=== PATIENT | male | born 1965 | race African-American/Black ===

== ENCOUNTER 2021-08-18 16:03 | Inpatient (IN) | payer BC, MEDICAID ==
[~2021-08-18] VITALS: Ht 195.6 cm; Wt 0.1 kg
[2021-08-18 22:15] LABS: Basophils # (auto) 0 10 ^3/uL (0-0.2); Basophils % (auto) 0.5 % (0.0-2.0); Eosinophils # (auto) 0.2 10 ^3/uL (0-0.8); Eosinophils % (auto) 2.3 % (0.0-7.0); Hematocrit 41.5 % (41.0-53.0); Hemoglobin 13.5 g/dL (13.5-17.5); Lymphocytes # (auto) 2.4 10 ^3/uL (0.4-5.4); Lymphocytes % (auto) 34.1 % (10.0-50.0); Mean Corpuscular Hemoglobin 29.1 pg (28.0-32.0); Mean Corpuscular Hgb Conc. 32.4 g/dL (32.0-36.0); Mean Corpuscular Volume 89.7 fL (80.0-100.0); Monocytes # (auto) 0.8 10 ^3/uL (0-1.3); Monocytes % (auto) 10.7 % (0.0-12.0); Neutrophils # (auto) 3.7 10 ^3/uL (1.6-8.6); Neutrophils % (auto) 52.4 % (37.0-80.0); Nucleated Red Blood Cells % 0.1 %; Red Blood Cells 4.63 10^6/uL (4.5-5.90); Red Cell Distribution Width 14.9 % (11.8-14.3); White Blood Cell 7.2 10^3/uL (4.4-10.8)
[2021-08-18 22:35] LABS: Albumin 3.5 g/dL (3.4-5.0); Calcium 9.4 mg/dL (8.5-10.1); Potassium 4.1 mmol/L (3.5-5.1)
[2021-08-18 22:38] LABS: BUN/Creatinine Ratio 16.2
[2021-08-18 22:40] LABS: Bilirubin, Total 0.4 mg/dL (0.2-1.0)
[2021-08-19] MEDS ORDERED: DOCUSATE SOD 100 MG CAP PO ONE (05:45)
[2021-08-19 06:20] LABS: Urine Bacteria NONE SEEN /hpf (None Seen); Urine Blood Negative /uL (Negative); Urine Specific Gravity 1.017 (1.001-1.035); Urine WBC <1 /hpf (0 - 3)
[2021-08-19 06:37] LABS: Amphetamine Screen, Urine NEGATIVE (NEGATIVE); Barbiturate Scree,Urine NEGATIVE (NEGATIVE); Benzodiazephine Screen, Urine NEGATIVE (NEGATIVE); Cannabinoid Screen, Urine NEGATIVE (NEGATIVE); Cocaine Screen, Urine NEGATIVE (NEGATIVE); Opiate Scree,Urine NEGATIVE (NEGATIVE); Phencyclidine Screen, Urine NEGATIVE (NEGATIVE)
[2021-08-19 07:10] LABS: BUN/Creatinine Ratio 13.6; Calcium 9.3 mg/dL (8.5-10.1); Potassium 4.2 mmol/L (3.5-5.1)
[2021-08-19 07:12] LABS: Basophils # (auto) 0.1 10 ^3/uL (0-0.2); Basophils % (auto) 0.7 % (0.0-2.0); Eosinophils # (auto) 0.1 10 ^3/uL (0-0.8); Eosinophils % (auto) 1.8 % (0.0-7.0); Hematocrit 39.3 % (41.0-53.0); Lymphocytes # (auto) 2.3 10 ^3/uL (0.4-5.4); Lymphocytes % (auto) 33.1 % (10.0-50.0); Mean Corpuscular Hemoglobin 29.8 pg (28.0-32.0); Mean Corpuscular Volume 90.2 fL (80.0-100.0); Monocytes # (auto) 0.7 10 ^3/uL (0-1.3); Monocytes % (auto) 10.7 % (0.0-12.0); Neutrophils # (auto) 3.7 10 ^3/uL (1.6-8.6); Neutrophils % (auto) 53.7 % (37.0-80.0); Nucleated Red Blood Cells % 0.1 %; Red Blood Cells 4.36 10^6/uL (4.5-5.90); Red Cell Distribution Width 14.8 % (11.8-14.3); White Blood Cell 6.8 10^3/uL (4.4-10.8)
[2021-08-19] MEDS: FOLIC ACID 1 MG, MULTIPLE VITAMIN 10 ML, THIAMINE INJ 100 MG in SODIUM CHLORIDE 0.9% 1,... INJ SCH (12:28)
[2021-08-19] MEDS: MORPHINE SULFATE 4 MG/ML SYR/VIAL IV PRN ×3 (13:48→23:20)
[2021-08-19 17:00] VITALS: BP 130/88
[2021-08-19] MEDS ORDERED: GOLYTELY 4L KIT PO ONE (17:15)
[2021-08-19 20:00] VITALS: BP 117/69
[2021-08-19 20:46] LABS: INR 1.26 (0.9-1.15); Partial Thromboplastin Time 29.3 sec (23.6-33.0)
[2021-08-19 22:00] VITALS: BP 117/69
[2021-08-20] VITALS (7 sets, daily range): BP systolic 116–175; BP diastolic 65–86
[2021-08-20] MEDS ORDERED: GOLYTELY 4L KIT PO ONE (06:00)
[2021-08-20] MEDS ORDERED: MAGNESIUM CITRATE SOLUTION 300 ML BTL PO ONE (06:00)
[2021-08-20 06:02] LABS: Basophils # (auto) 0 10 ^3/uL (0-0.2); Basophils % (auto) 0.6 % (0.0-2.0); Eosinophils # (auto) 0.1 10 ^3/uL (0-0.8); Eosinophils % (auto) 1.4 % (0.0-7.0); Hematocrit 40.9 % (41.0-53.0); Hemoglobin 13.7 g/dL (13.5-17.5); Lymphocytes # (auto) 1.9 10 ^3/uL (0.4-5.4); Lymphocytes % (auto) 27.8 % (10.0-50.0); Mean Corpuscular Hemoglobin 30.8 pg (28.0-32.0); Mean Corpuscular Hgb Conc. 33.5 g/dL (32.0-36.0); Mean Corpuscular Volume 91.9 fL (80.0-100.0); Monocytes # (auto) 0.7 10 ^3/uL (0-1.3); Monocytes % (auto) 10.7 % (0.0-12.0); Neutrophils % (auto) 59.5 % (37.0-80.0); Nucleated Red Blood Cells % 0.2 %; Red Blood Cells 4.45 10^6/uL (4.5-5.90); Red Cell Distribution Width 14.9 % (11.8-14.3); White Blood Cell 6.7 10^3/uL (4.4-10.8)
[2021-08-20 06:10] LABS: Magnesium 1.7 mg/dL (1.6-2.6); Potassium 4.1 mmol/L (3.5-5.1)
[2021-08-20 06:17] LABS: Albumin 3.2 g/dL (3.4-5.0); BUN/Creatinine Ratio 10.3; Bilirubin, Total 0.6 mg/dL (0.2-1.0); Calcium 9.2 mg/dL (8.5-10.1); Phosphorus 3.1 mg/dL (2.5-4.90)
[2021-08-20 08:37] LABS: Hepatitis B Surface Antibody Negative (Negative)
[2021-08-20 09:10] LABS: Hepatitis A Total Antibody Negative (Negative)
[2021-08-20] MEDS: PANTOPRAZOLE 40 MG TAB PO SCH (09:23)
[2021-08-20] MEDS: MORPHINE SULFATE 4 MG/ML SYR/VIAL IV PRN ×3 (10:39→21:22)
[2021-08-20 11:02] LABS: Hepatitis C Antibody Negative (Negative)
[2021-08-20] MEDS: FOLIC ACID 1 MG, MULTIPLE VITAMIN 10 ML, THIAMINE INJ 100 MG in SODIUM CHLORIDE 0.9% 1,... INJ SCH (12:15)
[2021-08-20] MEDS: D5W/SOD CHL 0.45% 1,000 ML IV SCH ×2 (20:15→21:34)
[2021-08-21] MEDS: MORPHINE SULFATE 4 MG/ML SYR/VIAL IV PRN ×4 (00:43→21:40)
[2021-08-21] MEDS: D5W/SOD CHL 0.45% 1,000 ML IV SCH ×2 (04:15→14:17)
[2021-08-21 05:00] VITALS: BP 118/66
[2021-08-21 08:00] VITALS: BP 117/69
[2021-08-21] MEDS ORDERED: MAGNESIUM CITRATE SOLUTION 300 ML BTL PO ONE (08:00)
[2021-08-21] MEDS ORDERED: SODIUM CHLORIDE LOCK 10 ML ONE (09:15)
[2021-08-21] MEDS ORDERED: MIDAZOLAM HCL 5 MG/ML-1ML VIAL ONE (09:15)
[2021-08-21] MEDS ORDERED: diphenhdrAMINE HCL 50 MG/1 ML VL ONE (09:16)
[2021-08-21] MEDS ORDERED: fentaNYL CITRATE 100 MCG/2 ML VL ONE ×2 (09:16→15:45)
[2021-08-21] MEDS: PANTOPRAZOLE 40 MG TAB PO SCH (10:00)
[2021-08-21 12:30] VITALS: BP 113/68
[2021-08-21] MEDS ORDERED: MEPERIDINE HCL (25 MG/ML) 1ML VIAL ONE (15:45)
[2021-08-21] MEDS ORDERED: MIDAZOLAM HCL 2MG/2ML 2ml VIAL (1mg/ml) ONE (15:45)
[2021-08-21] MEDS ORDERED: DexAMETHasone SOD PHOS 10MG/1ML VIAL INJ ONE (15:57)
[2021-08-21] MEDS ORDERED: PROPOFOL 10 MG/ML 20 ML IV ONE (15:57)
[2021-08-21] MEDS ORDERED: hydrALAZINE HCL 20 MG/ML VL IV PRN (16:00)
[2021-08-21] MEDS ORDERED: ePHEDrine SULFATE 50 MG/ML AMP IV PRN (16:00)
[2021-08-21] MEDS ORDERED: HYDROmorphone HCL 2 MG/ML VL/or syr IV PRN (16:00)
[2021-08-21] MEDS ORDERED: ONDANSETRON HCL 4 MG/2 ML VIAL IV PRN (16:00)
[2021-08-21] MEDS ORDERED: MORPHINE SULFATE 4 MG/ML SYR/VIAL IV PRN (16:00)
[2021-08-21] MEDS ORDERED: LABETALOL HCL 5 MG/ML 4ML SYRINGE IV PRN (16:00)
[2021-08-21] MEDS ORDERED: MIDAZOLAM HCL 2MG/2ML 2ml VIAL (1mg/ml) IV PRN (16:00)
[2021-08-21] MEDS: FOLIC ACID 1 MG, MULTIPLE VITAMIN 10 ML, THIAMINE INJ 100 MG in SODIUM CHLORIDE 0.9% 1,... INJ SCH (16:50)
[2021-08-21 17:00] VITALS: BP 120/70
[2021-08-21 20:00] VITALS: BP 127/77
[2021-08-21 22:00] VITALS: BP 122/77
[2021-08-22 05:00] VITALS: BP 111/66
[2021-08-22] MEDS: MORPHINE SULFATE 4 MG/ML SYR/VIAL IV PRN ×2 (05:07→11:19)
[2021-08-22] MEDS: D5W/SOD CHL 0.45% 1,000 ML IV SCH ×4 (05:25→20:30)
[2021-08-22 08:00] VITALS: BP 117/69
[2021-08-22 09:00] VITALS: BP 132/83
[2021-08-22] MEDS: PANTOPRAZOLE 40 MG TAB PO SCH (10:22)
[2021-08-22 13:00] VITALS: BP 132/81
[2021-08-22] MEDS ORDERED: ACETAMINOPHEN 325 MG TAB PO PRN (14:15)
[2021-08-22] MEDS: HYDROcodone-ACET 5/325MG TAB PO PRN (14:44)
[2021-08-22] MEDS: FOLIC ACID 1 MG, MULTIPLE VITAMIN 10 ML, THIAMINE INJ 100 MG in SODIUM CHLORIDE 0.9% 1,... INJ SCH (16:34)
[2021-08-22 16:35] VITALS: BP 135/85
[2021-08-22 22:00] VITALS: BP 125/80
[2021-08-23] VITALS (7 sets, daily range): BP systolic 103–121; BP diastolic 65–81
[2021-08-23] MEDS: MORPHINE SULFATE 4 MG/ML SYR/VIAL IV PRN ×3 (03:43→20:46)
[2021-08-23] MEDS: D5W/SOD CHL 0.45% 1,000 ML IV SCH ×3 (04:15→20:15)
[2021-08-23] MEDS: PANTOPRAZOLE 40 MG TAB PO SCH (09:34)
[2021-08-23] MEDS: FOLIC ACID 1 MG, MULTIPLE VITAMIN 10 ML, THIAMINE INJ 100 MG in SODIUM CHLORIDE 0.9% 1,... INJ SCH (12:27)
[2021-08-23 20:28] LABS: Basophils # (auto) 0.1 10 ^3/uL (0-0.2); Basophils % (auto) 0.8 % (0.0-2.0); Eosinophils # (auto) 0.1 10 ^3/uL (0-0.8); Eosinophils % (auto) 0.6 % (0.0-7.0); Hematocrit 38.9 % (41.0-53.0); Hemoglobin 12.9 g/dL (13.5-17.5); Lymphocytes # (auto) 2.6 10 ^3/uL (0.4-5.4); Lymphocytes % (auto) 27.7 % (10.0-50.0); Mean Corpuscular Hemoglobin 29.8 pg (28.0-32.0); Mean Corpuscular Hgb Conc. 33.2 g/dL (32.0-36.0); Mean Corpuscular Volume 89.5 fL (80.0-100.0); Monocytes % (auto) 10.3 % (0.0-12.0); Neutrophils # (auto) 5.7 10 ^3/uL (1.6-8.6); Neutrophils % (auto) 60.6 % (37.0-80.0); Nucleated Red Blood Cells % 0.1 %; Red Blood Cells 4.34 10^6/uL (4.5-5.90); Red Cell Distribution Width 14.3 % (11.8-14.3); White Blood Cell 9.4 10^3/uL (4.4-10.8)
[2021-08-23 20:42] LABS: Albumin 2.9 g/dL (3.4-5.0); Anion Gap 11 (5-15); BUN/Creatinine Ratio 4.7; Blood Urea Nitrogen 3 mg/dL (7-18); Calcium 8.1 mg/dL (8.5-10.1); Carbon Dioxide 24 mmol/L (21-32); Chloride 103 mmol/L (98-107); GFR African American 168 mL/min; GFR Non-African American 139 mL/min; Glucose 134 mg/dL (74-106); Potassium 3.4 mmol/L (3.5-5.1); Sodium 138 mmol/L (136-145)
[2021-08-23 20:44] LABS: Alanine Aminotransferase 44 U/L (16-61); Alkaline Phosphatase 197 U/L (45-117); Aspartate Aminotransferase 39 U/L (15-37); Bilirubin, Total 0.6 mg/dL (0.2-1.0); Total Protein 7.3 g/dL (6.4-8.2)
[2021-08-23] MEDS: ENOXAPARIN SOD 100 MG/1 ML SYRINGE SC SCH (22:06)
[2021-08-24] MEDS: MORPHINE SULFATE 4 MG/ML SYR/VIAL IV PRN ×4 (02:04→19:11)
[2021-08-24] MEDS: D5W/SOD CHL 0.45% 1,000 ML IV SCH ×3 (04:26→23:17)
[2021-08-24 05:00] VITALS: BP 113/60
[2021-08-24 06:40] LABS: Basophils # (auto) 0 10 ^3/uL (0-0.2); Basophils % (auto) 0.6 % (0.0-2.0); Eosinophils # (auto) 0.1 10 ^3/uL (0-0.8); Eosinophils % (auto) 0.8 % (0.0-7.0); Hematocrit 39.3 % (41.0-53.0); Hemoglobin 13.1 g/dL (13.5-17.5); Lymphocytes # (auto) 2.1 10 ^3/uL (0.4-5.4); Lymphocytes % (auto) 26.8 % (10.0-50.0); Mean Corpuscular Hemoglobin 29.8 pg (28.0-32.0); Mean Corpuscular Hgb Conc. 33.2 g/dL (32.0-36.0); Mean Corpuscular Volume 89.7 fL (80.0-100.0); Monocytes # (auto) 0.8 10 ^3/uL (0-1.3); Monocytes % (auto) 10.1 % (0.0-12.0); Neutrophils # (auto) 4.9 10 ^3/uL (1.6-8.6); Neutrophils % (auto) 61.7 % (37.0-80.0); Nucleated Red Blood Cells % 0.1 %; Red Blood Cells 4.39 10^6/uL (4.5-5.90); Red Cell Distribution Width 14.7 % (11.8-14.3); White Blood Cell 7.9 10^3/uL (4.4-10.8)
[2021-08-24 06:46] LABS: Potassium 3.7 mmol/L (3.5-5.1)
[2021-08-24 06:54] LABS: Albumin 2.8 g/dL (3.4-5.0); BUN/Creatinine Ratio 6.5; Bilirubin, Total 0.6 mg/dL (0.2-1.0); Calcium 8.3 mg/dL (8.5-10.1); Total Protein 7.1 g/dL (6.4-8.2)
[2021-08-24 08:00] VITALS: BP 110/48
[2021-08-24 09:00] VITALS: BP 110/48
[2021-08-24] MEDS ORDERED: PANT40TA2 PO (10:32)
[2021-08-24] MEDS: ENOXAPARIN SOD 100 MG/1 ML SYRINGE SC SCH ×2 (11:00→21:05)
[2021-08-24] MEDS: PANTOPRAZOLE 40 MG TAB PO SCH (11:00)
[2021-08-24 13:01] VITALS: BP 115/71
[2021-08-24] MEDS: FOLIC ACID 1 MG, MULTIPLE VITAMIN 10 ML, THIAMINE INJ 100 MG in SODIUM CHLORIDE 0.9% 1,... INJ SCH (13:27)
[2021-08-24 13:34] LABS: INR 1.19 (0.9-1.15); Partial Thromboplastin Time 37.3 sec (24.6-33.4)
[2021-08-24 17:25] VITALS: BP 117/72
[2021-08-24] MEDS: SUCRALFATE 1 GM TAB PO SCH (21:03)
[2021-08-24] MEDS: HYDROcodone-ACET 5/325MG TAB PO PRN (21:04)
[2021-08-24 22:00] VITALS: BP 108/65
[2021-08-25] MEDS: HYDROcodone-ACET 5/325MG TAB PO PRN (02:00)
[2021-08-25 05:00] VITALS: BP 119/73
[2021-08-25] MEDS: D5W/SOD CHL 0.45% 1,000 ML IV SCH ×3 (05:28→20:52)
[2021-08-25] MEDS: SUCRALFATE 1 GM TAB PO SCH ×4 (05:29→22:02)
[2021-08-25] MEDS: MORPHINE SULFATE 4 MG/ML SYR/VIAL IV PRN ×2 (08:54→21:26)
[2021-08-25] MEDS: PANTOPRAZOLE 40 MG TAB PO SCH (08:59)
[2021-08-25] MEDS: ENOXAPARIN SOD 100 MG/1 ML SYRINGE SC SCH ×2 (08:59→22:02)
[2021-08-25 09:00] VITALS: BP 136/73
[2021-08-25] MEDS ORDERED: GADOTERATE MEG 10 MMOL/20ml INJ (0.5MMOL/ml) IV ONE (12:24)
[2021-08-25 13:00] VITALS: BP 113/65
[2021-08-25] MEDS: FOLIC ACID 1 MG, MULTIPLE VITAMIN 10 ML, THIAMINE INJ 100 MG in SODIUM CHLORIDE 0.9% 1,... INJ SCH (14:27)
[2021-08-25] MEDS ORDERED: EZ PAQUE SUSP 12OZ BTL ONE (15:14)
[2021-08-25] MEDS ORDERED: BARIUM SULFATE 98% 340 GM PWDR ONE (15:14)
[2021-08-25] MEDS ORDERED: EZ-GAS II GRANULES (RADIOLOGY USE) PO ONE (15:14)
[2021-08-25 17:00] VITALS: BP 136/88
[2021-08-25 20:00] VITALS: BP 137/86
[2021-08-25 22:00] VITALS: BP 137/86
[2021-08-26] MEDS: HYDROcodone-ACET 5/325MG TAB PO PRN ×3 (02:33→20:10)
[2021-08-26] MEDS: MORPHINE SULFATE 4 MG/ML SYR/VIAL IV PRN ×2 (03:45→15:11)
[2021-08-26] MEDS: D5W/SOD CHL 0.45% 1,000 ML IV SCH ×3 (04:34→20:10)
[2021-08-26 05:13] VITALS: BP 111/68
[2021-08-26] MEDS: SUCRALFATE 1 GM TAB PO SCH ×4 (06:47→22:26)
[2021-08-26 09:00] VITALS: BP 110/69
[2021-08-26] MEDS: ENOXAPARIN SOD 100 MG/1 ML SYRINGE SC SCH ×2 (12:37→22:27)
[2021-08-26] MEDS: PANTOPRAZOLE 40 MG TAB PO SCH (12:37)
[2021-08-26] MEDS: FOLIC ACID 1 MG, MULTIPLE VITAMIN 10 ML, THIAMINE INJ 100 MG in SODIUM CHLORIDE 0.9% 1,... INJ SCH (12:45)
[2021-08-26 13:00] VITALS: BP 110/69
[2021-08-26] MEDS ORDERED: LACTULOSE 20Gm/30ML SOLN PO ONE (15:15)
[2021-08-26 16:47] VITALS: BP 134/88
[2021-08-26 22:00] VITALS: BP 125/70
[2021-08-26] MEDS: LACTULOSE 20Gm/30ML SOLN PO SCH (22:27)
[2021-08-27] MEDS: HYDROcodone-ACET 5/325MG TAB PO PRN ×3 (01:28→20:24)
[2021-08-27] MEDS: D5W/SOD CHL 0.45% 1,000 ML IV SCH ×2 (04:04→12:15)
[2021-08-27 05:00] VITALS: BP 124/86
[2021-08-27] MEDS: SUCRALFATE 1 GM TAB PO SCH ×4 (06:45→21:18)
[2021-08-27 08:00] VITALS: BP 131/88
[2021-08-27 09:00] VITALS: BP 118/77
[2021-08-27] MEDS: ENOXAPARIN SOD 100 MG/1 ML SYRINGE SC SCH (09:27)
[2021-08-27] MEDS: LACTULOSE 20Gm/30ML SOLN PO SCH ×2 (09:27→21:18)
[2021-08-27] MEDS: PANTOPRAZOLE 40 MG TAB PO SCH (09:27)
[2021-08-27 12:36] VITALS: BP 131/88
[2021-08-27] MEDS: FOLIC ACID 1 MG, MULTIPLE VITAMIN 10 ML, THIAMINE INJ 100 MG in SODIUM CHLORIDE 0.9% 1,... INJ SCH (12:55)
[2021-08-27] MEDS: MORPHINE SULFATE 4 MG/ML SYR/VIAL IV PRN ×2 (13:42→21:51)
[2021-08-27 16:30] VITALS: BP 127/84
[2021-08-27] MEDS ORDERED: APIX5TAB PO ×2 (17:47)
[2021-08-27] MEDS ORDERED: HYDR-4798 PO (17:48)
[2021-08-27] MEDS ORDERED: CLINIMIX PER PHARMACY 0 ML IV SCH (18:15)
[2021-08-27] MEDS ORDERED: AMINO ACID INFUSION IN D10W 1,000 ML IV NR (20:00)
[2021-08-27 21:06] LABS: Alanine Aminotransferase 66 U/L (16-61); Albumin 2.6 g/dL (3.4-5.0); Anion Gap 10 (5-15); Aspartate Aminotransferase 55 U/L (15-37); BUN/Creatinine Ratio 3.6; Blood Urea Nitrogen 2 mg/dL (7-18); Calcium 8.4 mg/dL (8.5-10.1); Carbon Dioxide 25 mmol/L (21-32); Chloride 102 mmol/L (98-107); GFR African American 200 mL/min; GFR Non-African American 166 mL/min; Glucose 108 mg/dL (74-106); Magnesium 1.8 mg/dL (1.6-2.6); Phosphorus 2.2 mg/dL (2.5-4.90); Potassium 3.1 mmol/L (3.5-5.1); Sodium 137 mmol/L (136-145)
[2021-08-27 21:08] LABS: Alkaline Phosphatase 258 U/L (45-117); Bilirubin, Total 1.1 mg/dL (0.2-1.0); Total Protein 7.1 g/dL (6.4-8.2)
[2021-08-27] MEDS: APIXABAN 5 MG TAB PO SCH (21:18)
[2021-08-27] MEDS ORDERED: POTASSIUM PHOSPHATE 22 MEQ in SODIUM CHL 0.9% 100 ML IV ONE (21:45)
[2021-08-27 22:00] VITALS: BP 152/92
[2021-08-27] MEDS: ACCU-CHEK COMFORT CURVE STRIP VI SCH (23:27)
[2021-08-27] MEDS: InsuLIN REG 1unit/0.01ml Soln (100units/ml) SC SCH (23:27)
[2021-08-28] MEDS ORDERED: DEXTROSE (50%) 50ML SYRG IV SCH
[2021-08-28 05:00] VITALS: BP 134/88
[2021-08-28] MEDS: HYDROcodone-ACET 5/325MG TAB PO PRN ×3 (05:00→23:58)
[2021-08-28] MEDS: InsuLIN REG 1unit/0.01ml Soln (100units/ml) SC SCH ×3 (05:54→17:17)
[2021-08-28] MEDS: ACCU-CHEK COMFORT CURVE STRIP VI SCH ×3 (05:54→17:18)
[2021-08-28] MEDS: MORPHINE SULFATE 4 MG/ML SYR/VIAL IV PRN ×4 (05:54→21:41)
[2021-08-28] MEDS: SUCRALFATE 1 GM TAB PO SCH ×4 (06:17→21:43)
[2021-08-28 06:57] LABS: Potassium 3.1 mmol/L (3.5-5.1)
[2021-08-28 07:04] LABS: Albumin 2.6 g/dL (3.4-5.0); BUN/Creatinine Ratio 7.4; Bilirubin, Total 0.9 mg/dL (0.2-1.0); Calcium 8.6 mg/dL (8.5-10.1); Magnesium 1.7 mg/dL (1.6-2.6); Phosphorus 2.9 mg/dL (2.5-4.90)
[2021-08-28 08:00] VITALS: BP 140/94
[2021-08-28 09:00] VITALS: BP 140/94
[2021-08-28] MEDS: PANTOPRAZOLE 40 MG TAB PO SCH (09:07)
[2021-08-28] MEDS: APIXABAN 5 MG TAB PO SCH ×2 (09:07→21:43)
[2021-08-28] MEDS: LACTULOSE 20Gm/30ML SOLN PO SCH ×2 (09:07→21:43)
[2021-08-28] MEDS: FOLIC ACID 1 MG, MULTIPLE VITAMIN 10 ML, THIAMINE INJ 100 MG in SODIUM CHLORIDE 0.9% 1,... INJ SCH (12:00)
[2021-08-28] MEDS ORDERED: MAGNESIUM SULFATE 1GM/100ML 100 ML IV ONE (12:45)
[2021-08-28 13:00] VITALS: BP 144/85
[2021-08-28] MEDS: POTASSIUM CHL 20MEQ/100ML 100 ML IV SCH ×2 (13:45→15:08)
[2021-08-28] MEDS ORDERED: POTASSIUM PHOSP 22MEQ(15MMOLE) in NS 100 ML IV ONE (17:00)
[2021-08-28] MEDS ORDERED: AMINO ACID INFUSION IN D10W 1,000 ML IV NR (20:00)
[2021-08-28 22:00] VITALS: BP 126/74
[2021-08-29] MEDS: ACCU-CHEK COMFORT CURVE STRIP VI SCH ×5 (00:03→23:11)
[2021-08-29] MEDS: MORPHINE SULFATE 4 MG/ML SYR/VIAL IV PRN ×4 (02:06→13:19)
[2021-08-29] MEDS: HYDROcodone-ACET 5/325MG TAB PO PRN (04:05)
[2021-08-29 05:00] VITALS: BP 132/80
[2021-08-29] MEDS: InsuLIN REG 1unit/0.01ml Soln (100units/ml) SC SCH ×5 (06:00→23:11)
[2021-08-29 06:22] LABS: Albumin 2.6 g/dL (3.4-5.0); Calcium 8.5 mg/dL (8.5-10.1); Magnesium 1.9 mg/dL (1.6-2.6); Potassium 3.2 mmol/L (3.5-5.1)
[2021-08-29 06:25] LABS: Phosphorus 2.6 mg/dL (2.5-4.90)
[2021-08-29] MEDS: SUCRALFATE 1 GM TAB PO SCH ×4 (06:27→22:00)
[2021-08-29 06:31] LABS: BUN/Creatinine Ratio 7.7
[2021-08-29 08:54] VITALS: BP 134/80
[2021-08-29] MEDS: PANTOPRAZOLE 40 MG TAB PO SCH (10:14)
[2021-08-29] MEDS: LACTULOSE 20Gm/30ML SOLN PO SCH ×2 (10:14→22:57)
[2021-08-29] MEDS: APIXABAN 5 MG TAB PO SCH ×2 (10:14→22:57)
[2021-08-29] MEDS ORDERED: MAGNESIUM CITRATE SOLUTION 300 ML BTL PO ONE (10:30)
[2021-08-29] MEDS: POTASSIUM CHL 20MEQ/100ML 100 ML IV SCH ×2 (11:30→13:30)
[2021-08-29] MEDS: POTASSIUM CHL 20 Meq TABLET PO SCH (13:21)
[2021-08-29] MEDS: HYDROmorphone HCL 2 MG/ML VL/or syr IV PRN ×2 (15:18→23:06)
[2021-08-29] MEDS ORDERED: POTASSIUM PHOSP 22MEQ(15MMOLE) in NS 100 ML IV ONE (16:00)
[2021-08-29] MEDS ORDERED: AMINO ACID INFUSION IN D10W 1,000 ML IV NR (20:00)
[2021-08-29 22:00] VITALS: BP 128/73
[2021-08-30] MEDS: HYDROcodone-ACET 5/325MG TAB PO PRN (00:23)
[2021-08-30 05:00] VITALS: BP 108/71
[2021-08-30] MEDS: HYDROmorphone HCL 2 MG/ML VL/or syr IV PRN ×4 (05:21→22:51)
[2021-08-30] MEDS: InsuLIN REG 1unit/0.01ml Soln (100units/ml) SC SCH ×3 (05:23→18:00)
[2021-08-30] MEDS: ACCU-CHEK COMFORT CURVE STRIP VI SCH ×3 (05:24→18:12)
[2021-08-30 05:44] LABS: Albumin 2.8 g/dL (3.4-5.0); BUN/Creatinine Ratio 10.3; Calcium 8.8 mg/dL (8.5-10.1); Magnesium 2.1 mg/dL (1.6-2.6); Potassium 3.3 mmol/L (3.5-5.1)
[2021-08-30 05:58] LABS: Bilirubin, Total 1.1 mg/dL (0.2-1.0); Phosphorus 2.3 mg/dL (2.5-4.90); Total Protein 7.5 g/dL (6.4-8.2)
[2021-08-30] MEDS: SUCRALFATE 1 GM TAB PO SCH ×4 (08:00→22:51)
[2021-08-30 09:00] VITALS: BP 110/64
[2021-08-30] MEDS: PANTOPRAZOLE 40 MG TAB PO SCH (10:11)
[2021-08-30] MEDS: APIXABAN 5 MG TAB PO SCH ×2 (10:11→22:51)
[2021-08-30] MEDS: POTASSIUM CHL 20 Meq TABLET PO SCH (10:11)
[2021-08-30] MEDS: LACTULOSE 20Gm/30ML SOLN PO SCH ×2 (10:11→22:00)
[2021-08-30] MEDS ORDERED: POTASSIUM PHOSPHATE 26.4 MEQ in SODIUM CHL 0.9% 100 ML IV ONE (10:15)
[2021-08-30 13:00] VITALS: BP 121/72
[2021-08-30 16:51] VITALS: BP 132/76
[2021-08-30] MEDS ORDERED: AMINO ACID INFUSION IN D10W 1,000 ML IV NR (20:00)
[2021-08-30 22:00] VITALS: BP 123/66
[2021-08-31] MEDS: ACCU-CHEK COMFORT CURVE STRIP VI SCH ×4 (00:18→17:30)
[2021-08-31 05:00] VITALS: BP 108/65
[2021-08-31] MEDS: InsuLIN REG 1unit/0.01ml Soln (100units/ml) SC SCH ×4 (06:00→17:31)
[2021-08-31] MEDS: SUCRALFATE 1 GM TAB PO SCH ×4 (06:11→21:56)
[2021-08-31] MEDS: HYDROmorphone HCL 2 MG/ML VL/or syr IV PRN ×3 (06:15→20:13)
[2021-08-31 06:57] LABS: Potassium 3.4 mmol/L (3.5-5.1)
[2021-08-31 07:01] LABS: Albumin 2.7 g/dL (3.4-5.0); BUN/Creatinine Ratio 10.5; Calcium 8.7 mg/dL (8.5-10.1); Magnesium 1.9 mg/dL (1.6-2.6); Total Protein 7.3 g/dL (6.4-8.2)
[2021-08-31 07:05] LABS: Bilirubin, Total 1.3 mg/dL (0.2-1.0); Phosphorus 2.8 mg/dL (2.5-4.90)
[2021-08-31 09:04] VITALS: BP 110/65
[2021-08-31] MEDS: LACTULOSE 20Gm/30ML SOLN PO SCH ×3 (09:05→21:56)
[2021-08-31] MEDS: POTASSIUM CHL 20 Meq TABLET PO SCH (09:05)
[2021-08-31] MEDS: PANTOPRAZOLE 40 MG TAB PO SCH (09:05)
[2021-08-31] MEDS: APIXABAN 5 MG TAB PO SCH ×2 (09:05→21:56)
[2021-08-31 09:21] LABS: Basophils # (auto) 0 10 ^3/uL (0-0.2); Basophils % (auto) 0.1 % (0.0-2.0); Eosinophils # (auto) 0.1 10 ^3/uL (0-0.8); Hematocrit 31.4 % (41.0-53.0); Hemoglobin 10.5 g/dL (13.5-17.5); Lymphocytes # (auto) 1.6 10 ^3/uL (0.4-5.4); Lymphocytes % (auto) 19.4 % (10.0-50.0); Mean Corpuscular Hemoglobin 30.2 pg (28.0-32.0); Mean Corpuscular Hgb Conc. 33.6 g/dL (32.0-36.0); Mean Corpuscular Volume 89.8 fL (80.0-100.0); Monocytes # (auto) 0.7 10 ^3/uL (0-1.3); Monocytes % (auto) 8.2 % (0.0-12.0); Neutrophils % (auto) 71.3 % (37.0-80.0); Red Cell Distribution Width 14.7 % (11.8-14.3); White Blood Cell 8.4 10^3/uL (4.4-10.8)
[2021-08-31 09:30] LABS: Albumin 2.5 g/dL (3.4-5.0); Calcium 8.7 mg/dL (8.5-10.1); Potassium 3.5 mmol/L (3.5-5.1)
[2021-08-31 09:33] LABS: BUN/Creatinine Ratio 10.3; Bilirubin, Total 1.2 mg/dL (0.2-1.0); Total Protein 7.2 g/dL (6.4-8.2)
[2021-08-31] MEDS ORDERED: SODIUM PHOSPHATES 20 MEQ in SODIUM CHL 0.9% 100 ML IV ONE (10:45)
[2021-08-31 13:00] VITALS: BP_SYST 124; BP_SYST 145; BP_DIAS 78; BP_DIAS 80
[2021-08-31 17:00] VITALS: BP 138/85
[2021-08-31] MEDS ORDERED: CLINIMIX PER PHARMACY IV NR (20:00)
[2021-08-31 22:00] VITALS: BP 119/62
[2021-09-01] MEDS: ACCU-CHEK COMFORT CURVE STRIP VI SCH ×4 (00:20→18:39)
[2021-09-01] MEDS: HYDROmorphone HCL 2 MG/ML VL/or syr IV PRN ×4 (03:08→22:42)
[2021-09-01 05:00] VITALS: BP 126/78
[2021-09-01] MEDS: InsuLIN REG 1unit/0.01ml Soln (100units/ml) SC SCH ×4 (06:00→18:00)
[2021-09-01] MEDS: SUCRALFATE 1 GM TAB PO SCH ×4 (06:25→22:42)
[2021-09-01 07:25] LABS: Albumin 2.5 g/dL (3.4-5.0); Calcium 8.6 mg/dL (8.5-10.1); Potassium 3.6 mmol/L (3.5-5.1)
[2021-09-01 07:30] LABS: BUN/Creatinine Ratio 9.3; Bilirubin, Total 1.4 mg/dL (0.2-1.0); Phosphorus 3.4 mg/dL (2.5-4.90); Total Protein 6.8 g/dL (6.4-8.2)
[2021-09-01 08:00] VITALS: BP 137/86
[2021-09-01 08:33] VITALS: BP 137/86
[2021-09-01] MEDS: POTASSIUM CHL 20 Meq TABLET PO SCH (09:20)
[2021-09-01] MEDS: APIXABAN 5 MG TAB PO SCH ×2 (09:20→22:42)
[2021-09-01] MEDS: PANTOPRAZOLE 40 MG TAB PO SCH (09:20)
[2021-09-01 12:33] VITALS: BP 130/77
[2021-09-01 17:00] VITALS: BP 131/83
[2021-09-01] MEDS: HYDROcodone-ACET 5/325MG TAB PO PRN (18:50)
[2021-09-01] MEDS ORDERED: CLINIMIX PER PHARMACY IV NR (20:00)
[2021-09-01 22:00] VITALS: BP 117/74
[2021-09-01] MEDS: LACTULOSE 20Gm/30ML SOLN PO SCH (22:43)
[2021-09-02] MEDS: ACCU-CHEK COMFORT CURVE STRIP VI SCH ×4 (00:09→16:30)
[2021-09-02] MEDS: HYDROcodone-ACET 5/325MG TAB PO PRN ×3 (00:09→10:24)
[2021-09-02] MEDS: HYDROmorphone HCL 2 MG/ML VL/or syr IV PRN ×4 (04:56→21:23)
[2021-09-02 05:00] VITALS: BP 130/84
[2021-09-02] MEDS: InsuLIN REG 1unit/0.01ml Soln (100units/ml) SC SCH ×4 (06:00→16:30)
[2021-09-02] MEDS: SUCRALFATE 1 GM TAB PO SCH ×4 (06:14→21:22)
[2021-09-02 06:41] LABS: Potassium 3.6 mmol/L (3.5-5.1)
[2021-09-02 06:49] LABS: Albumin 2.8 g/dL (3.4-5.0); BUN/Creatinine Ratio 10.2; Calcium 8.8 mg/dL (8.5-10.1); Magnesium 2.1 mg/dL (1.6-2.6)
[2021-09-02 06:51] LABS: Bilirubin, Total 1.7 mg/dL (0.2-1.0); Phosphorus 3.3 mg/dL (2.5-4.90); Total Protein 7.5 g/dL (6.4-8.2)
[2021-09-02 09:00] VITALS: BP 128/74
[2021-09-02] MEDS: PANTOPRAZOLE 40 MG TAB PO SCH (10:23)
[2021-09-02] MEDS: APIXABAN 5 MG TAB PO SCH ×2 (10:24→21:22)
[2021-09-02] MEDS: POTASSIUM CHL 20 Meq TABLET PO SCH (10:24)
[2021-09-02] MEDS: LACTULOSE 20Gm/30ML SOLN PO SCH ×2 (10:25→21:23)
[2021-09-02] MEDS ORDERED: TPN PER PHARMACY 0 ML IV SCH (12:15)
[2021-09-02 13:00] VITALS: BP 126/73
[2021-09-02] MEDS ORDERED: HYDROcodone-ACET 10/325MG TAB PO PRN (13:00)
[2021-09-02 14:34] LABS: Basophils # (auto) 0.1 10 ^3/uL (0-0.2); Basophils % (auto) 0.8 % (0.0-2.0); Eosinophils # (auto) 0.1 10 ^3/uL (0-0.8); Eosinophils % (auto) 1.3 % (0.0-7.0); Hematocrit 32.3 % (41.0-53.0); Hemoglobin 10.7 g/dL (13.5-17.5); Lymphocytes # (auto) 1.2 10 ^3/uL (0.4-5.4); Lymphocytes % (auto) 15.8 % (10.0-50.0); Mean Corpuscular Hemoglobin 29.6 pg (28.0-32.0); Mean Corpuscular Volume 89.8 fL (80.0-100.0); Monocytes # (auto) 0.7 10 ^3/uL (0-1.3); Neutrophils # (auto) 5.7 10 ^3/uL (1.6-8.6); Neutrophils % (auto) 73.1 % (37.0-80.0); Nucleated Red Blood Cells % 0.1 %; Red Cell Distribution Width 14.9 % (11.8-14.3); White Blood Cell 7.8 10^3/uL (4.4-10.8)
[2021-09-02 15:00] LABS: INR 1.4 (0.9-1.15); Partial Thromboplastin Time 34.7 sec (24.6-33.4)
[2021-09-02] MEDS: FUROSEMIDE 40 MG/4 ML VIAL IV SCH (15:55)
[2021-09-02 16:55] VITALS: BP 136/83
[2021-09-02] MEDS ORDERED: AMINO ACID INFUSION IN D10W 1,000 ML IV SCH (20:00)
[2021-09-02 22:00] VITALS: BP 113/65
[2021-09-03] MEDS: ACCU-CHEK COMFORT CURVE STRIP VI SCH ×5 (00:57→23:44)
[2021-09-03] MEDS: HYDROmorphone HCL 2 MG/ML VL/or syr IV PRN ×5 (01:15→22:45)
[2021-09-03 05:00] VITALS: BP 137/76
[2021-09-03] MEDS: InsuLIN REG 1unit/0.01ml Soln (100units/ml) SC SCH ×6 (06:00→23:50)
[2021-09-03] MEDS: SUCRALFATE 1 GM TAB PO SCH ×4 (06:34→21:04)
[2021-09-03 06:39] LABS: Potassium 3.6 mmol/L (3.5-5.1)
[2021-09-03 06:48] LABS: Albumin 2.6 g/dL (3.4-5.0); BUN/Creatinine Ratio 9.1; Bilirubin, Total 1.4 mg/dL (0.2-1.0); Calcium 9.1 mg/dL (8.5-10.1); Magnesium 1.8 mg/dL (1.6-2.6); Phosphorus 3.2 mg/dL (2.5-4.90); Total Protein 7.5 g/dL (6.4-8.2)
[2021-09-03 09:00] VITALS: BP 119/75
[2021-09-03] MEDS: LACTULOSE 20Gm/30ML SOLN PO SCH ×2 (10:00→21:04)
[2021-09-03 12:00] VITALS: BP 118/78
[2021-09-03] MEDS: POTASSIUM CHL 20 Meq TABLET PO SCH (12:11)
[2021-09-03] MEDS: PANTOPRAZOLE 40 MG TAB PO SCH (12:11)
[2021-09-03] MEDS: APIXABAN 5 MG TAB PO SCH (12:11)
[2021-09-03] MEDS: FUROSEMIDE 40 MG/4 ML VIAL IV SCH (15:12)
[2021-09-03 17:00] VITALS: BP 114/72
[2021-09-03 20:00] VITALS: BP 128/78
[2021-09-03] MEDS ORDERED: PPN PER PHARMACY IV NR ×8 (20:00)
[2021-09-03] MEDS ORDERED: TPN PER PHARMACY IV NR ×9 (20:00)
[2021-09-03 22:00] VITALS: BP 128/76
[2021-09-04] MEDS: HYDROmorphone HCL 2 MG/ML VL/or syr IV PRN ×5 (04:32→21:34)
[2021-09-04 05:00] VITALS: BP 126/80
[2021-09-04] MEDS: InsuLIN REG 1unit/0.01ml Soln (100units/ml) SC SCH ×3 (06:00→17:31)
[2021-09-04] MEDS: ACCU-CHEK COMFORT CURVE STRIP VI SCH ×3 (06:06→17:31)
[2021-09-04] MEDS: SUCRALFATE 1 GM TAB PO SCH ×4 (06:07→21:01)
[2021-09-04 07:05] LABS: Albumin 2.6 g/dL (3.4-5.0); Calcium 8.7 mg/dL (8.5-10.1); Potassium 3.8 mmol/L (3.5-5.1)
[2021-09-04 07:08] LABS: BUN/Creatinine Ratio 12.5; Bilirubin, Total 1.3 mg/dL (0.2-1.0); Phosphorus 3.7 mg/dL (2.5-4.90); Total Protein 7.5 g/dL (6.4-8.2)
[2021-09-04 07:30] VITALS: BP 139/86
[2021-09-04] MEDS: FUROSEMIDE 40 MG/4 ML VIAL IV SCH (09:42)
[2021-09-04] MEDS: PANTOPRAZOLE 40 MG TAB PO SCH (09:42)
[2021-09-04] MEDS: POTASSIUM CHL 20 Meq TABLET PO SCH (09:42)
[2021-09-04] MEDS: LACTULOSE 20Gm/30ML SOLN PO SCH ×2 (10:00→21:01)
[2021-09-04] MEDS ORDERED: APIXABAN 5 MG TAB PO SCH (11:35)
[2021-09-04 12:54] VITALS: BP 124/75
[2021-09-04] MEDS ORDERED: HEPARIN DRIP/D5W 100UNITS/ML 250 ML IV SCH (15:15)
[2021-09-04 16:09] LABS: Basophils # (auto) 0.1 10 ^3/uL (0-0.2); Basophils % (auto) 0.8 % (0.0-2.0); Eosinophils # (auto) 0.1 10 ^3/uL (0-0.8); Eosinophils % (auto) 1.6 % (0.0-7.0); Hematocrit 34.1 % (41.0-53.0); Hemoglobin 11.2 g/dL (13.5-17.5); Lymphocytes # (auto) 1.8 10 ^3/uL (0.4-5.4); Lymphocytes % (auto) 22.1 % (10.0-50.0); Mean Corpuscular Hemoglobin 29.4 pg (28.0-32.0); Mean Corpuscular Hgb Conc. 32.8 g/dL (32.0-36.0); Mean Corpuscular Volume 89.7 fL (80.0-100.0); Monocytes # (auto) 0.8 10 ^3/uL (0-1.3); Monocytes % (auto) 9.5 % (0.0-12.0); Neutrophils # (auto) 5.4 10 ^3/uL (1.6-8.6); Nucleated Red Blood Cells % 0.1 %; Red Blood Cells 3.81 10^6/uL (4.5-5.90); Red Cell Distribution Width 14.7 % (11.8-14.3); White Blood Cell 8.2 10^3/uL (4.4-10.8)
[2021-09-04 16:28] LABS: INR 1.24 (0.9-1.15); Partial Thromboplastin Time 31.3 sec (24.6-33.4)
[2021-09-04 17:28] VITALS: BP 112/67
[2021-09-04 20:00] VITALS: BP 111/70
[2021-09-04] MEDS ORDERED: PPN PER PHARMACY IV NR ×9 (20:00)
[2021-09-04 22:00] VITALS: BP 111/70
[2021-09-05] MEDS: ACCU-CHEK COMFORT CURVE STRIP VI SCH ×5 (00:24→23:12)
[2021-09-05] MEDS: HYDROmorphone HCL 2 MG/ML VL/or syr IV PRN ×6 (01:33→22:27)
[2021-09-05 01:34] LABS: INR 1.19 (0.9-1.15); Partial Thromboplastin Time 35.8 sec (24.6-33.4)
[2021-09-05 05:00] VITALS: BP 106/65
[2021-09-05] MEDS: InsuLIN REG 1unit/0.01ml Soln (100units/ml) SC SCH ×5 (06:00→23:12)
[2021-09-05] MEDS: SUCRALFATE 1 GM TAB PO SCH ×4 (07:00→22:26)
[2021-09-05 07:12] LABS: Magnesium 2.3 mg/dL (1.6-2.6); Potassium 4.2 mmol/L (3.5-5.1)
[2021-09-05 07:14] LABS: BUN/Creatinine Ratio 13.6; Basophils # (auto) 0.1 10 ^3/uL (0-0.2); Basophils % (auto) 0.9 % (0.0-2.0); Eosinophils # (auto) 0.1 10 ^3/uL (0-0.8); Eosinophils % (auto) 0.9 % (0.0-7.0); Hematocrit 32.6 % (41.0-53.0); Lymphocytes # (auto) 2.3 10 ^3/uL (0.4-5.4); Lymphocytes % (auto) 26.9 % (10.0-50.0); Mean Corpuscular Hemoglobin 30.7 pg (28.0-32.0); Mean Corpuscular Hgb Conc. 33.9 g/dL (32.0-36.0); Mean Corpuscular Volume 90.5 fL (80.0-100.0); Monocytes # (auto) 0.7 10 ^3/uL (0-1.3); Monocytes % (auto) 7.7 % (0.0-12.0); Neutrophils # (auto) 5.5 10 ^3/uL (1.6-8.6); Neutrophils % (auto) 63.6 % (37.0-80.0); Red Cell Distribution Width 14.9 % (11.8-14.3); White Blood Cell 8.7 10^3/uL (4.4-10.8)
[2021-09-05 07:17] LABS: Bilirubin, Total 1.5 mg/dL (0.2-1.0); Phosphorus 3.5 mg/dL (2.5-4.90); Total Protein 7.6 g/dL (6.4-8.2)
[2021-09-05 09:00] VITALS: BP 101/66
[2021-09-05 09:58] LABS: INR 1.16 (0.9-1.15); Partial Thromboplastin Time 38.7 sec (24.6-33.4)
[2021-09-05] MEDS: LACTULOSE 20Gm/30ML SOLN PO SCH ×3 (10:00→22:26)
[2021-09-05] MEDS: POTASSIUM CHL 20 Meq TABLET PO SCH (11:08)
[2021-09-05] MEDS: PANTOPRAZOLE 40 MG TAB PO SCH (11:08)
[2021-09-05] MEDS: FUROSEMIDE 40 MG/4 ML VIAL IV SCH (11:09)
[2021-09-05] MEDS ORDERED: HEPARIN DRIP/D5W 100UNITS/ML 250 ML IV SCH (11:45)
[2021-09-05 13:00] VITALS: BP 118/72
[2021-09-05 16:40] VITALS: BP 115/68
[2021-09-05 18:34] LABS: INR 1.18 (0.9-1.15); Partial Thromboplastin Time 31.2 sec (24.6-33.4)
[2021-09-05] MEDS: HEPARIN DRIP/D5W 100UNITS/ML 250 ML IV SCH (19:00)
[2021-09-05] MEDS ORDERED: HEPARIN SODIUM (PORCINE) 5000 UNITS/ML 1ML VIAL IV ONE (19:00)
[2021-09-05] MEDS: PPN PER PHARMACY IV NR ×9 (20:03)
[2021-09-05 22:00] VITALS: BP 105/62
[2021-09-06 01:22] LABS: INR 1.17 (0.9-1.15); Partial Thromboplastin Time 55.6 sec (24.6-33.4)
[2021-09-06] MEDS: HYDROmorphone HCL 2 MG/ML VL/or syr IV PRN ×6 (01:44→21:48)
[2021-09-06 05:00] VITALS: BP 129/71
[2021-09-06] MEDS: HEPARIN DRIP/D5W 100UNITS/ML 250 ML IV SCH ×2 (05:10→18:38)
[2021-09-06] MEDS: ACCU-CHEK COMFORT CURVE STRIP VI SCH ×2 (05:28→12:09)
[2021-09-06] MEDS: InsuLIN REG 1unit/0.01ml Soln (100units/ml) SC SCH ×2 (05:29→12:00)
[2021-09-06] MEDS: SUCRALFATE 1 GM TAB PO SCH ×4 (06:16→21:29)
[2021-09-06 06:49] LABS: Basophils # (auto) 0.1 10 ^3/uL (0-0.2); Basophils % (auto) 0.7 % (0.0-2.0); Eosinophils # (auto) 0.1 10 ^3/uL (0-0.8); Eosinophils % (auto) 1.3 % (0.0-7.0); Hematocrit 33.4 % (41.0-53.0); Hemoglobin 11.2 g/dL (13.5-17.5); Lymphocytes # (auto) 2.2 10 ^3/uL (0.4-5.4); Lymphocytes % (auto) 25.3 % (10.0-50.0); Mean Corpuscular Hemoglobin 30.3 pg (28.0-32.0); Mean Corpuscular Hgb Conc. 33.7 g/dL (32.0-36.0); Monocytes # (auto) 0.8 10 ^3/uL (0-1.3); Monocytes % (auto) 9.4 % (0.0-12.0); Neutrophils # (auto) 5.5 10 ^3/uL (1.6-8.6); Neutrophils % (auto) 63.3 % (37.0-80.0); Red Blood Cells 3.71 10^6/uL (4.5-5.90); Red Cell Distribution Width 14.8 % (11.8-14.3); White Blood Cell 8.6 10^3/uL (4.4-10.8)
[2021-09-06 06:58] LABS: Albumin 2.8 g/dL (3.4-5.0); Calcium 8.8 mg/dL (8.5-10.1); Magnesium 2.1 mg/dL (1.6-2.6); Potassium 4.6 mmol/L (3.5-5.1)
[2021-09-06 07:02] LABS: BUN/Creatinine Ratio 16.1; Bilirubin, Total 1.4 mg/dL (0.2-1.0); Phosphorus 3.6 mg/dL (2.5-4.90); Total Protein 7.6 g/dL (6.4-8.2)
[2021-09-06 08:40] VITALS: BP 122/66
[2021-09-06] MEDS: PANTOPRAZOLE 40 MG TAB PO SCH (09:54)
[2021-09-06] MEDS: LACTULOSE 20Gm/30ML SOLN PO SCH ×2 (09:54→21:29)
[2021-09-06] MEDS: Glucerna Carbsteady SHAKE Vanilla 8oz PO SCH ×3 (09:54→17:50)
[2021-09-06 10:18] LABS: INR 1.17 (0.9-1.15); Partial Thromboplastin Time 50.7 sec (24.6-33.4)
[2021-09-06] MEDS: FUROSEMIDE 40 MG/4 ML VIAL IV SCH (10:55)
[2021-09-06] MEDS: POTASSIUM CHL 20 Meq TABLET PO SCH (10:55)
[2021-09-06 12:46] VITALS: BP 114/67
[2021-09-06 15:53] LABS: INR 1.16 (0.9-1.15); Partial Thromboplastin Time 46.1 sec (24.6-33.4)
[2021-09-06 16:55] VITALS: BP 120/66
[2021-09-06] MEDS: PPN PER PHARMACY IV NR ×9 (19:53)
[2021-09-06] MEDS ORDERED: PPN PER PHARMACY IV NR ×9 (20:00)
[2021-09-06 22:00] VITALS: BP 122/73
[2021-09-06 23:02] LABS: INR 1.13 (0.9-1.15); Partial Thromboplastin Time 52.7 sec (24.6-33.4)
[2021-09-07 05:00] VITALS: BP 120/74
[2021-09-07] MEDS: HYDROmorphone HCL 2 MG/ML VL/or syr IV PRN ×5 (05:06→23:49)
[2021-09-07] MEDS: HEPARIN DRIP/D5W 100UNITS/ML 250 ML IV SCH ×2 (05:16→18:36)
[2021-09-07 06:02] LABS: Albumin 2.8 g/dL (3.4-5.0); Calcium 9.2 mg/dL (8.5-10.1); Magnesium 2.3 mg/dL (1.6-2.6); Potassium 4.5 mmol/L (3.5-5.1)
[2021-09-07 06:05] LABS: BUN/Creatinine Ratio 12.5; Bilirubin, Total 1.6 mg/dL (0.2-1.0); Phosphorus 3.7 mg/dL (2.5-4.90); Total Protein 7.6 g/dL (6.4-8.2)
[2021-09-07] MEDS: SUCRALFATE 1 GM TAB PO SCH ×4 (06:09→22:06)
[2021-09-07] MEDS: Glucerna Carbsteady SHAKE Vanilla 8oz PO SCH ×3 (08:07→18:24)
[2021-09-07 08:19] VITALS: BP 154/88
[2021-09-07] MEDS: FUROSEMIDE 40 MG/4 ML VIAL IV SCH (09:53)
[2021-09-07] MEDS: LACTULOSE 20Gm/30ML SOLN PO SCH ×3 (09:53→22:07)
[2021-09-07] MEDS: PANTOPRAZOLE 40 MG TAB PO SCH (09:53)
[2021-09-07] MEDS: POTASSIUM CHL 20 Meq TABLET PO SCH (09:54)
[2021-09-07 10:00] VITALS: BP 125/54
[2021-09-07 10:06] LABS: INR 1.13 (0.9-1.15); Partial Thromboplastin Time 28.6 sec (24.6-33.4)
[2021-09-07 12:57] VITALS: BP 110/75
[2021-09-07] MEDS ORDERED: HEPARIN SODIUM (PORCINE) 5000 UNITS/ML 1ML VIAL IV ONE (13:45)
[2021-09-07 16:38] VITALS: BP 106/71
[2021-09-07 19:55] LABS: INR 1.19 (0.9-1.15)
[2021-09-07 22:00] VITALS: BP 114/64
[2021-09-08] VITALS (15 sets, daily range): BP systolic 103–122; BP diastolic 52–73
[2021-09-08 03:03] LABS: INR 1.19 (0.9-1.15); Partial Thromboplastin Time 68.7 sec (24.6-33.4)
[2021-09-08] MEDS: HEPARIN DRIP/D5W 100UNITS/ML 250 ML IV SCH ×2 (03:09→20:09)
[2021-09-08] MEDS: HYDROmorphone HCL 2 MG/ML VL/or syr IV PRN ×5 (03:35→20:17)
[2021-09-08] MEDS: SUCRALFATE 1 GM TAB PO SCH ×4 (06:10→21:30)
[2021-09-08] MEDS: Glucerna Carbsteady SHAKE Vanilla 8oz PO SCH ×3 (08:00→17:39)
[2021-09-08] MEDS: LACTULOSE 20Gm/30ML SOLN PO SCH ×2 (09:48→21:30)
[2021-09-08] MEDS: FUROSEMIDE 40 MG/4 ML VIAL IV SCH (09:48)
[2021-09-08] MEDS: POTASSIUM CHL 20 Meq TABLET PO SCH (09:49)
[2021-09-08] MEDS: PANTOPRAZOLE 40 MG TAB PO SCH (09:49)
[2021-09-08] MEDS ORDERED: MIDAZOLAM HCL 2MG/2ML 2ml VIAL (1mg/ml) IV ONE (10:00)
[2021-09-08] MEDS ORDERED: fentaNYL CITRATE 100 MCG/2 ML VL IV ONE (10:00)
[2021-09-08 10:04] LABS: INR 1.18 (0.9-1.15); Partial Thromboplastin Time 28.3 sec (24.6-33.4)
[2021-09-08] MEDS ORDERED: GELATIN 1 SPONGE SIZE 100 TOP ONE (10:43)
[2021-09-08] MEDS ORDERED: HEPARIN SODIUM (PORCINE) 5000 UNITS/ML 1ML VIAL IV ONE (20:00)
[2021-09-09] MEDS: HYDROmorphone HCL 2 MG/ML VL/or syr IV PRN ×5 (01:34→21:18)
[2021-09-09 03:58] LABS: INR 1.21 (0.9-1.15)
[2021-09-09] MEDS ORDERED: HEPARIN SODIUM (PORCINE) 5000 UNITS/ML 1ML VIAL IV ONE ×4 (04:45→16:45)
[2021-09-09 05:00] VITALS: BP 116/75
[2021-09-09] MEDS: SUCRALFATE 1 GM TAB PO SCH ×4 (06:33→21:21)
[2021-09-09] MEDS: Glucerna Carbsteady SHAKE Vanilla 8oz PO SCH ×3 (08:04→17:33)
[2021-09-09 08:32] LABS: INR 1.2 (0.9-1.15); Partial Thromboplastin Time 31.6 sec (24.6-33.4)
[2021-09-09] MEDS: PANTOPRAZOLE 40 MG TAB PO SCH (08:40)
[2021-09-09] MEDS: FUROSEMIDE 40 MG/4 ML VIAL IV SCH (08:40)
[2021-09-09] MEDS: POTASSIUM CHL 20 Meq TABLET PO SCH (08:40)
[2021-09-09] MEDS: LACTULOSE 20Gm/30ML SOLN PO SCH ×2 (08:40→21:22)
[2021-09-09 08:56] VITALS: BP 114/68
[2021-09-09] MEDS: HEPARIN DRIP/D5W 100UNITS/ML 250 ML IV SCH ×2 (09:40→16:51)
[2021-09-09 13:00] VITALS: BP_SYST 107; BP_SYST 114; BP_DIAS 68; BP_DIAS 70
[2021-09-09 16:32] LABS: INR 1.15 (0.9-1.15); Partial Thromboplastin Time 31.1 sec (24.6-33.4)
[2021-09-09 16:46] VITALS: BP 133/71
[2021-09-09 22:00] VITALS: BP 127/71
[2021-09-09 23:29] LABS: INR 1.17 (0.9-1.15); Partial Thromboplastin Time 41.6 sec (24.6-33.4)
[2021-09-10] MEDS: HYDROmorphone HCL 2 MG/ML VL/or syr IV PRN ×6 (01:25→22:48)
[2021-09-10 05:00] VITALS: BP 119/73
[2021-09-10 06:10] LABS: Basophils # (auto) 0.2 10 ^3/uL (0-0.2); Basophils % (auto) 1.5 % (0.0-2.0); Eosinophils # (auto) 0.1 10 ^3/uL (0-0.8); Eosinophils % (auto) 0.5 % (0.0-7.0); Hematocrit 33.6 % (41.0-53.0); Lymphocytes # (auto) 2.5 10 ^3/uL (0.4-5.4); Lymphocytes % (auto) 24.1 % (10.0-50.0); Mean Corpuscular Hemoglobin 28.7 pg (28.0-32.0); Mean Corpuscular Hgb Conc. 32.7 g/dL (32.0-36.0); Mean Corpuscular Volume 87.8 fL (80.0-100.0); Monocytes # (auto) 1.1 10 ^3/uL (0-1.3); Monocytes % (auto) 10.2 % (0.0-12.0); Neutrophils # (auto) 6.6 10 ^3/uL (1.6-8.6); Neutrophils % (auto) 63.7 % (37.0-80.0); Red Blood Cells 3.83 10^6/uL (4.5-5.90); Red Cell Distribution Width 14.5 % (11.8-14.3); White Blood Cell 10.3 10^3/uL (4.4-10.8)
[2021-09-10 06:21] LABS: Albumin 2.6 g/dL (3.4-5.0); Calcium 9.1 mg/dL (8.5-10.1); Potassium 4.5 mmol/L (3.5-5.1)
[2021-09-10 06:26] LABS: BUN/Creatinine Ratio 12.3; Bilirubin, Total 1.6 mg/dL (0.2-1.0)
[2021-09-10] MEDS: HEPARIN DRIP/D5W 100UNITS/ML 250 ML IV SCH ×3 (06:42→16:02)
[2021-09-10] MEDS: SUCRALFATE 1 GM TAB PO SCH ×4 (06:58→21:26)
[2021-09-10 08:19] VITALS: BP 119/70
[2021-09-10 08:34] LABS: INR 1.15 (0.9-1.15); Partial Thromboplastin Time 37.8 sec (24.6-33.4)
[2021-09-10] MEDS: LACTULOSE 20Gm/30ML SOLN PO SCH ×2 (10:00→21:39)
[2021-09-10] MEDS: FUROSEMIDE 40 MG/4 ML VIAL IV SCH (10:00)
[2021-09-10] MEDS: PANTOPRAZOLE 40 MG TAB PO SCH (10:33)
[2021-09-10] MEDS: Glucerna Carbsteady SHAKE Vanilla 8oz PO SCH ×3 (10:33→17:06)
[2021-09-10] MEDS: POTASSIUM CHL 20 Meq TABLET PO SCH (10:33)
[2021-09-10 12:36] VITALS: BP 104/68
[2021-09-10 15:40] LABS: INR 1.16 (0.9-1.15); Partial Thromboplastin Time 29.8 sec (24.6-33.4)
[2021-09-10] MEDS ORDERED: HEPARIN SODIUM (PORCINE) 5000 UNITS/ML 1ML VIAL IV ONE (16:00)
[2021-09-10] MEDS ORDERED: LIDOCAINE 1% (LOCAL ANESTH.) PF 5ml SDV ID ONE (16:30)
[2021-09-10 16:48] VITALS: BP 109/68
[2021-09-10] MEDS: SODIUM CHLOR 0.9% PF (SALINE LOCK) 10ML VIAL/SYR IV SCH (21:25)
[2021-09-10 21:37] LABS: INR 1.24 (0.9-1.15)
[2021-09-10 22:00] VITALS: BP 121/78
[2021-09-11] MEDS: HYDROmorphone HCL 2 MG/ML VL/or syr IV PRN ×4 (03:04→22:35)
[2021-09-11 05:00] VITALS: BP_SYST 120; BP_SYST 130; BP_DIAS 70; BP_DIAS 83
[2021-09-11 05:53] LABS: Potassium 4.7 mmol/L (3.5-5.1)
[2021-09-11 05:58] LABS: INR 1.19 (0.9-1.15); Partial Thromboplastin Time 63.9 sec (24.6-33.4)
[2021-09-11 05:59] LABS: Albumin 2.7 g/dL (3.4-5.0); BUN/Creatinine Ratio 14.5; Bilirubin, Total 1.9 mg/dL (0.2-1.0); Calcium 9.2 mg/dL (8.5-10.1); Total Protein 7.8 g/dL (6.4-8.2)
[2021-09-11] MEDS: SUCRALFATE 1 GM TAB PO SCH ×5 (06:54→22:31)
[2021-09-11] MEDS: HEPARIN DRIP/D5W 100UNITS/ML 250 ML IV SCH (07:09)
[2021-09-11 09:25] VITALS: BP 167/90
[2021-09-11 09:26] VITALS: BP 127/75
[2021-09-11] MEDS: FUROSEMIDE 40 MG/4 ML VIAL IV SCH (10:00)
[2021-09-11] MEDS: LACTULOSE 20Gm/30ML SOLN PO SCH ×2 (10:00→22:00)
[2021-09-11] MEDS: PANTOPRAZOLE 40 MG TAB PO SCH (10:21)
[2021-09-11] MEDS: Glucerna Carbsteady SHAKE Vanilla 8oz PO SCH ×3 (10:21→17:30)
[2021-09-11] MEDS: SODIUM CHLOR 0.9% PF (SALINE LOCK) 10ML VIAL/SYR IV SCH ×2 (10:21→22:30)
[2021-09-11] MEDS: POTASSIUM CHL 20 Meq TABLET PO SCH (10:22)
[2021-09-11] MEDS ORDERED: TPN PER PHARMACY 0 ML IV SCH (13:00)
[2021-09-11 13:07] VITALS: BP 134/75
[2021-09-11 13:38] LABS: Magnesium 2.2 mg/dL (1.6-2.6)
[2021-09-11 13:40] LABS: Phosphorus 4.4 mg/dL (2.5-4.90)
[2021-09-11] MEDS ORDERED: fentaNYL CITRATE 100 MCG/2 ML VL ONE (14:30)
[2021-09-11] MEDS ORDERED: MIDAZOLAM HCL 2MG/2ML 2ml VIAL (1mg/ml) ONE (14:30)
[2021-09-11] MEDS ORDERED: METOCLOPRAMIDE HCL 5MG/ml INJ 2ml VIAL ONE (14:31)
[2021-09-11] MEDS ORDERED: PROPOFOL 10 MG/ML 20 ML IV ONE (14:31)
[2021-09-11] MEDS ORDERED: ONDANSETRON HCL 4 MG/2 ML VIAL ONE (14:31)
[2021-09-11] MEDS ORDERED: LIDOCAINE 2% (LOCAL ANESTH.) PF 5ml SDV ONE (14:31)
[2021-09-11] MEDS ORDERED: HYDROmorphone HCL 2 MG/ML VL/or syr IV PRN (16:00)
[2021-09-11] MEDS ORDERED: HYDROmorphone HCL 2 MG/ML VL/or syr IV ONE (16:00)
[2021-09-11] MEDS ORDERED: AMINO ACID INFUSION IN D10W 1,000 ML IV NR (20:00)
[2021-09-11 22:00] VITALS: BP 121/78
[2021-09-11] MEDS: APIXABAN 5 MG TAB PO SCH (22:31)
[2021-09-12] MEDS ORDERED: DEXTROSE (50%) 50ML SYRG IV SCH
[2021-09-12] MEDS: ACCU-CHEK COMFORT CURVE STRIP VI SCH ×5 (00:35→23:31)
[2021-09-12] MEDS: InsuLIN REG 1unit/0.01ml Soln (100units/ml) SC SCH ×5 (00:49→23:31)
[2021-09-12] MEDS: HYDROmorphone HCL 2 MG/ML VL/or syr IV PRN ×5 (04:01→22:15)
[2021-09-12 05:00] VITALS: BP 131/86
[2021-09-12] MEDS: SUCRALFATE 1 GM TAB PO SCH ×4 (06:15→22:14)
[2021-09-12] MEDS: Glucerna Carbsteady SHAKE Vanilla 8oz PO SCH ×3 (08:00→17:41)
[2021-09-12] MEDS: LACTULOSE 20Gm/30ML SOLN PO SCH ×2 (08:59→22:00)
[2021-09-12] MEDS: FUROSEMIDE 40 MG/4 ML VIAL IV SCH (08:59)
[2021-09-12 09:00] VITALS: BP 113/72
[2021-09-12] MEDS: SODIUM CHLOR 0.9% PF (SALINE LOCK) 10ML VIAL/SYR IV SCH ×2 (09:00→22:14)
[2021-09-12] MEDS: POTASSIUM CHL 20 Meq TABLET PO SCH (10:00)
[2021-09-12] MEDS: APIXABAN 5 MG TAB PO SCH ×2 (11:52→22:14)
[2021-09-12 11:53] LABS: Potassium 4.2 mmol/L (3.5-5.1)
[2021-09-12] MEDS: PANTOPRAZOLE 40 MG TAB PO SCH (11:53)
[2021-09-12 11:54] LABS: Albumin 2.5 g/dL (3.4-5.0); BUN/Creatinine Ratio 10.1; Bilirubin, Total 2.5 mg/dL (0.2-1.0); Calcium 8.4 mg/dL (8.5-10.1); Phosphorus 3.6 mg/dL (2.5-4.90); Total Protein 7.5 g/dL (6.4-8.2)
[2021-09-12 13:00] VITALS: BP 106/56
[2021-09-12 17:00] VITALS: BP 108/61
[2021-09-12] MEDS ORDERED: TPN PER PHARMACY IV NR ×10 (20:00)
[2021-09-12 22:00] VITALS: BP 117/76
[2021-09-13] MEDS: HYDROmorphone HCL 2 MG/ML VL/or syr IV PRN ×6 (02:05→22:36)
[2021-09-13 05:00] VITALS: BP 121/72
[2021-09-13] MEDS: InsuLIN REG 1unit/0.01ml Soln (100units/ml) SC SCH ×4 (06:00→23:53)
[2021-09-13] MEDS: ACCU-CHEK COMFORT CURVE STRIP VI SCH ×4 (06:11→23:52)
[2021-09-13] MEDS: SUCRALFATE 1 GM TAB PO SCH ×4 (06:11→22:35)
[2021-09-13 06:57] LABS: Calcium 9.2 mg/dL (8.5-10.1); Potassium 4.1 mmol/L (3.5-5.1)
[2021-09-13 07:03] LABS: Albumin 2.8 g/dL (3.4-5.0); BUN/Creatinine Ratio 15.3; Bilirubin, Total 2.9 mg/dL (0.2-1.0); Magnesium 2.3 mg/dL (1.6-2.6); Phosphorus 3.7 mg/dL (2.5-4.90); Total Protein 8.4 g/dL (6.4-8.2)
[2021-09-13] MEDS: Glucerna Carbsteady SHAKE Vanilla 8oz PO SCH ×3 (08:00→17:02)
[2021-09-13 09:00] VITALS: BP 118/85
[2021-09-13] MEDS: LACTULOSE 20Gm/30ML SOLN PO SCH ×2 (09:44→22:35)
[2021-09-13] MEDS: SODIUM CHLOR 0.9% PF (SALINE LOCK) 10ML VIAL/SYR IV SCH ×2 (09:44→22:35)
[2021-09-13] MEDS: APIXABAN 5 MG TAB PO SCH ×2 (09:44→22:35)
[2021-09-13] MEDS: FUROSEMIDE 40 MG/4 ML VIAL IV SCH (09:44)
[2021-09-13] MEDS: POTASSIUM CHL 20 Meq TABLET PO SCH (09:45)
[2021-09-13] MEDS: PANTOPRAZOLE 40 MG TAB PO SCH (09:45)
[2021-09-13 13:00] VITALS: BP 115/66
[2021-09-13 17:11] VITALS: BP 127/76
[2021-09-13] MEDS ORDERED: TPN PER PHARMACY IV NR ×11 (20:00)
[2021-09-13 22:00] VITALS: BP 120/79
[2021-09-14] MEDS: HYDROmorphone HCL 2 MG/ML VL/or syr IV PRN ×5 (02:34→22:28)
[2021-09-14 05:00] VITALS: BP 117/78
[2021-09-14 05:32] LABS: Basophils # (auto) 0.1 10 ^3/uL (0-0.2); Basophils % (auto) 0.7 % (0.0-2.0); Eosinophils # (auto) 0.1 10 ^3/uL (0-0.8); Eosinophils % (auto) 0.6 % (0.0-7.0); Hematocrit 33.6 % (41.0-53.0); Hemoglobin 11.1 g/dL (13.5-17.5); Lymphocytes # (auto) 1.4 10 ^3/uL (0.4-5.4); Lymphocytes % (auto) 13.9 % (10.0-50.0); Mean Corpuscular Hemoglobin 29.7 pg (28.0-32.0); Mean Corpuscular Hgb Conc. 33.1 g/dL (32.0-36.0); Mean Corpuscular Volume 89.9 fL (80.0-100.0); Monocytes # (auto) 1.1 10 ^3/uL (0-1.3); Monocytes % (auto) 10.1 % (0.0-12.0); Neutrophils # (auto) 7.8 10 ^3/uL (1.6-8.6); Neutrophils % (auto) 74.7 % (37.0-80.0); Red Blood Cells 3.74 10^6/uL (4.5-5.90); Red Cell Distribution Width 14.6 % (11.8-14.3); White Blood Cell 10.4 10^3/uL (4.4-10.8)
[2021-09-14 05:47] LABS: Potassium 4.6 mmol/L (3.5-5.1)
[2021-09-14 05:56] LABS: Albumin 2.6 g/dL (3.4-5.0); BUN/Creatinine Ratio 20.3; Bilirubin, Total 3.4 mg/dL (0.2-1.0); Calcium 9.2 mg/dL (8.5-10.1); Phosphorus 3.8 mg/dL (2.5-4.90)
[2021-09-14] MEDS: InsuLIN REG 1unit/0.01ml Soln (100units/ml) SC SCH ×3 (06:40→18:00)
[2021-09-14] MEDS: ACCU-CHEK COMFORT CURVE STRIP VI SCH ×3 (06:40→18:24)
[2021-09-14] MEDS: SUCRALFATE 1 GM TAB PO SCH ×4 (06:41→21:34)
[2021-09-14 08:33] VITALS: BP 111/62
[2021-09-14] MEDS: Glucerna Carbsteady SHAKE Vanilla 8oz PO SCH ×3 (09:10→17:47)
[2021-09-14] MEDS: LACTULOSE 20Gm/30ML SOLN PO SCH ×3 (09:12→21:34)
[2021-09-14] MEDS: SODIUM CHLOR 0.9% PF (SALINE LOCK) 10ML VIAL/SYR IV SCH ×2 (09:12→21:34)
[2021-09-14] MEDS: FUROSEMIDE 40 MG/4 ML VIAL IV SCH (09:12)
[2021-09-14] MEDS: POTASSIUM CHL 20 Meq TABLET PO SCH (09:13)
[2021-09-14] MEDS: APIXABAN 5 MG TAB PO SCH ×2 (09:13→21:34)
[2021-09-14] MEDS: PANTOPRAZOLE 40 MG TAB PO SCH (09:13)
[2021-09-14] MEDS: MORPHINE SULF 30 mg ER tab PO SCH ×2 (11:02→21:34)
[2021-09-14 12:22] VITALS: BP 128/79
[2021-09-14 17:00] VITALS: BP 123/71
[2021-09-14] MEDS ORDERED: TPN PER PHARMACY IV NR ×11 (20:00)
[2021-09-14 22:45] VITALS: BP 114/72
[2021-09-15] MEDS: ACCU-CHEK COMFORT CURVE STRIP VI SCH ×5 (00:14→23:56)
[2021-09-15] MEDS: HYDROmorphone HCL 2 MG/ML VL/or syr IV PRN ×6 (03:28→22:41)
[2021-09-15 04:41] VITALS: BP 133/84
[2021-09-15] MEDS: InsuLIN REG 1unit/0.01ml Soln (100units/ml) SC SCH ×5 (05:47→23:56)
[2021-09-15] MEDS: SUCRALFATE 1 GM TAB PO SCH ×4 (06:20→21:33)
[2021-09-15] MEDS: Glucerna Carbsteady SHAKE Vanilla 8oz PO SCH ×3 (08:00→17:15)
[2021-09-15 08:40] VITALS: BP 109/66
[2021-09-15] MEDS: FUROSEMIDE 40 MG/4 ML VIAL IV SCH (09:21)
[2021-09-15] MEDS: SODIUM CHLOR 0.9% PF (SALINE LOCK) 10ML VIAL/SYR IV SCH ×2 (09:24→21:34)
[2021-09-15] MEDS: LACTULOSE 20Gm/30ML SOLN PO SCH ×2 (09:24→21:33)
[2021-09-15] MEDS: PANTOPRAZOLE 40 MG TAB PO SCH (09:26)
[2021-09-15] MEDS: APIXABAN 5 MG TAB PO SCH ×2 (09:26→21:33)
[2021-09-15] MEDS: POTASSIUM CHL 20 Meq TABLET PO SCH (09:26)
[2021-09-15] MEDS: MORPHINE SULF 30 mg ER tab PO SCH ×3 (09:26→21:34)
[2021-09-15 09:43] LABS: Albumin 2.6 g/dL (3.4-5.0); Calcium 8.9 mg/dL (8.5-10.1); Magnesium 2.2 mg/dL (1.6-2.6); Potassium 4.3 mmol/L (3.5-5.1)
[2021-09-15 09:46] LABS: BUN/Creatinine Ratio 19.1; Bilirubin, Total 3.6 mg/dL (0.2-1.0); Phosphorus 3.6 mg/dL (2.5-4.90); Total Protein 7.8 g/dL (6.4-8.2)
[2021-09-15 12:38] VITALS: BP 127/81
[2021-09-15 16:43] VITALS: BP 121/75
[2021-09-15] MEDS ORDERED: TPN PER PHARMACY IV NR ×9 (20:00)
[2021-09-15 21:59] VITALS: BP 134/88
[2021-09-16] MEDS: HYDROmorphone HCL 2 MG/ML VL/or syr IV PRN ×5 (03:15→22:15)
[2021-09-16 05:00] VITALS: BP 130/82
[2021-09-16] MEDS: SUCRALFATE 1 GM TAB PO SCH ×4 (05:50→21:11)
[2021-09-16] MEDS: InsuLIN REG 1unit/0.01ml Soln (100units/ml) SC SCH ×4 (05:50→23:53)
[2021-09-16] MEDS: ACCU-CHEK COMFORT CURVE STRIP VI SCH ×4 (05:50→23:52)
[2021-09-16] MEDS: Glucerna Carbsteady SHAKE Vanilla 8oz PO SCH ×3 (08:29→17:59)
[2021-09-16 08:41] LABS: Potassium 4.5 mmol/L (3.5-5.1)
[2021-09-16 08:48] LABS: Albumin 2.4 g/dL (3.4-5.0); BUN/Creatinine Ratio 21.3; Bilirubin, Total 3.2 mg/dL (0.2-1.0); Calcium 9.1 mg/dL (8.5-10.1); Magnesium 2.3 mg/dL (1.6-2.6); Phosphorus 3.6 mg/dL (2.5-4.90); Total Protein 7.7 g/dL (6.4-8.2)
[2021-09-16 09:00] VITALS: BP 133/84
[2021-09-16] MEDS: LACTULOSE 20Gm/30ML SOLN PO SCH ×2 (10:00→21:13)
[2021-09-16] MEDS: MORPHINE SULF 30 mg ER tab PO SCH ×2 (10:00→21:12)
[2021-09-16] MEDS: FUROSEMIDE 40 MG/4 ML VIAL IV SCH (10:00)
[2021-09-16] MEDS: SODIUM CHLOR 0.9% PF (SALINE LOCK) 10ML VIAL/SYR IV SCH ×2 (11:44→21:13)
[2021-09-16] MEDS: PANTOPRAZOLE 40 MG TAB PO SCH (11:53)
[2021-09-16] MEDS: POTASSIUM CHL 20 Meq TABLET PO SCH (11:54)
[2021-09-16] MEDS: APIXABAN 5 MG TAB PO SCH (11:55)
[2021-09-16 13:00] VITALS: BP 117/82
[2021-09-16 14:29] LABS: INR 1.32 (0.9-1.15); Partial Thromboplastin Time 33.3 sec (24.6-33.4)
[2021-09-16] MEDS ORDERED: HEPARIN DRIP/D5W 100UNITS/ML 250 ML IV SCH (14:30)
[2021-09-16 17:00] VITALS: BP 129/83
[2021-09-16] MEDS ORDERED: TPN PER PHARMACY IV NR ×9 (20:00)
[2021-09-16 21:34] LABS: INR 1.28 (0.9-1.15); Partial Thromboplastin Time 39.3 sec (24.6-33.4)
[2021-09-16] MEDS: HEPARIN DRIP/D5W 100UNITS/ML 250 ML IV SCH (21:45)
[2021-09-16 22:00] VITALS: BP 147/87
[2021-09-17] MEDS: HYDROmorphone HCL 2 MG/ML VL/or syr IV PRN ×8 (02:15→21:52)
[2021-09-17 05:00] VITALS: BP 121/73
[2021-09-17 05:30] LABS: INR 1.19 (0.9-1.15); Partial Thromboplastin Time 30.1 sec (24.6-33.4)
[2021-09-17 05:46] LABS: Albumin 2.3 g/dL (3.4-5.0); BUN/Creatinine Ratio 25.8; Calcium 8.6 mg/dL (8.5-10.1); Magnesium 2.3 mg/dL (1.6-2.6); Potassium 4.5 mmol/L (3.5-5.1)
[2021-09-17 05:48] LABS: Bilirubin, Total 2.4 mg/dL (0.2-1.0); Phosphorus 3.2 mg/dL (2.5-4.90); Total Protein 7.3 g/dL (6.4-8.2)
[2021-09-17] MEDS: InsuLIN REG 1unit/0.01ml Soln (100units/ml) SC SCH ×3 (05:53→17:54)
[2021-09-17] MEDS: ACCU-CHEK COMFORT CURVE STRIP VI SCH ×3 (05:53→17:54)
[2021-09-17] MEDS: SUCRALFATE 1 GM TAB PO SCH ×4 (05:54→21:50)
[2021-09-17] MEDS: Glucerna Carbsteady SHAKE Vanilla 8oz PO SCH ×4 (08:00→17:52)
[2021-09-17 09:00] VITALS: BP 125/79
[2021-09-17] MEDS ORDERED: IOHEXOL 300 MG/ML 100ML BOTTLE IJ ONE (09:16)
[2021-09-17] MEDS: LACTULOSE 20Gm/30ML SOLN PO SCH ×3 (09:49→21:53)
[2021-09-17] MEDS: SODIUM CHLOR 0.9% PF (SALINE LOCK) 10ML VIAL/SYR IV SCH ×2 (09:49→21:53)
[2021-09-17] MEDS: MORPHINE SULF 30 mg ER tab PO SCH ×2 (09:50→21:50)
[2021-09-17] MEDS: FUROSEMIDE 40 MG/4 ML VIAL IV SCH ×2 (09:50→09:55)
[2021-09-17] MEDS: POTASSIUM CHL 20 Meq TABLET PO SCH (09:50)
[2021-09-17] MEDS: PANTOPRAZOLE 40 MG TAB PO SCH (09:51)
[2021-09-17] MEDS ORDERED: ceFAZolin 1GM/50ML 100 ML IV ONE (10:43)
[2021-09-17] MEDS: HEPARIN DRIP/D5W 100UNITS/ML 250 ML IV SCH (10:55)
[2021-09-17] MEDS ORDERED: GADOTERATE MEG 10 MMOL/20ml INJ (0.5MMOL/ml) IV ONE (11:21)
[2021-09-17] MEDS ORDERED: ceFAZolin 1GM VL ONE (12:07)
[2021-09-17] MEDS ORDERED: HEPARIN SODIUM (PORCINE) 5000 UNITS/ML 1ML VIAL ONE (12:08)
[2021-09-17] MEDS ORDERED: LIDOCAINE 1%HCL (LOCAL ANESTH) 10 ML MDV ONE ×2 (12:19→13:12)
[2021-09-17] MEDS ORDERED: MEPERIDINE HCL (25 MG/ML) 1ML VIAL ONE (12:33)
[2021-09-17] MEDS ORDERED: fentaNYL CITRATE 100 MCG/2 ML VL ONE (12:33)
[2021-09-17] MEDS ORDERED: MIDAZOLAM HCL 2MG/2ML 2ml VIAL (1mg/ml) ONE (12:33)
[2021-09-17] MEDS ORDERED: LABETALOL HCL 5 MG/ML 4ML SYRINGE IV PRN (12:45)
[2021-09-17] MEDS ORDERED: ONDANSETRON HCL 4 MG/2 ML VIAL IV PRN (12:45)
[2021-09-17] MEDS ORDERED: ePHEDrine SULFATE 50 MG/ML AMP IV PRN (12:45)
[2021-09-17] MEDS ORDERED: MIDAZOLAM HCL 2MG/2ML 2ml VIAL (1mg/ml) IV PRN (12:45)
[2021-09-17] MEDS ORDERED: MORPHINE SULFATE 4 MG/ML SYR/VIAL IV PRN (12:45)
[2021-09-17] MEDS ORDERED: HEPARIN 1,000 UNITS/ml 1ML VIAL ONE (13:28)
[2021-09-17] MEDS ORDERED: MORP30TA5 PO (13:48)
[2021-09-17] MEDS ORDERED: HYDR2TAB58 PO (13:48)
[2021-09-17] MEDS ORDERED: PROPOFOL 10 MG/ML 20 ML IV ONE (14:04)
[2021-09-17] MEDS ORDERED: DexAMETHasone SOD PHOS 10MG/1ML VIAL INJ ONE (14:04)
[2021-09-17 15:30] VITALS: BP 136/81
[2021-09-17] MEDS: HYDROmorphone HCL 2 MG TAB PO PRN ×2 (15:46→19:57)
[2021-09-17 17:00] VITALS: BP 137/80
[2021-09-17] MEDS ORDERED: TPN PER PHARMACY IV NR ×9 (20:00)
[2021-09-17 22:18] VITALS: BP 137/90
[2021-09-18] MEDS: ACCU-CHEK COMFORT CURVE STRIP VI SCH ×3 (00:01→12:25)
[2021-09-18] MEDS: InsuLIN REG 1unit/0.01ml Soln (100units/ml) SC SCH ×3 (00:02→12:00)
[2021-09-18] MEDS: HEPARIN DRIP/D5W 100UNITS/ML 250 ML IV SCH ×2 (00:05→13:15)
[2021-09-18] MEDS: HYDROmorphone HCL 2 MG/ML VL/or syr IV PRN ×3 (01:00→12:00)
[2021-09-18 05:55] VITALS: BP 116/77
[2021-09-18 06:24] LABS: Potassium 4.3 mmol/L (3.5-5.1)
[2021-09-18 06:35] LABS: Albumin 2.3 g/dL (3.4-5.0); BUN/Creatinine Ratio 25.9; Bilirubin, Total 2.2 mg/dL (0.2-1.0); Calcium 8.7 mg/dL (8.5-10.1); Magnesium 2.2 mg/dL (1.6-2.6); Phosphorus 3.3 mg/dL (2.5-4.90); Total Protein 7.3 g/dL (6.4-8.2)
[2021-09-18] MEDS: SUCRALFATE 1 GM TAB PO SCH ×3 (06:35→17:00)
[2021-09-18] MEDS: HYDROmorphone HCL 2 MG TAB PO PRN ×2 (06:45→14:19)
[2021-09-18] MEDS: Glucerna Carbsteady SHAKE Vanilla 8oz PO SCH ×2 (08:05→12:25)
[2021-09-18 09:26] VITALS: BP 127/80
[2021-09-18] MEDS: FUROSEMIDE 40 MG/4 ML VIAL IV SCH (10:00)
[2021-09-18] MEDS: SODIUM CHLOR 0.9% PF (SALINE LOCK) 10ML VIAL/SYR IV SCH (10:05)
[2021-09-18] MEDS: MORPHINE SULF 30 mg ER tab PO SCH (10:30)
[2021-09-18] MEDS: LACTULOSE 20Gm/30ML SOLN PO SCH (10:30)
[2021-09-18] MEDS: PANTOPRAZOLE 40 MG TAB PO SCH (10:30)
[2021-09-18] MEDS: POTASSIUM CHL 20 Meq TABLET PO SCH (10:46)
[2021-09-18 13:00] VITALS: BP 130/85
[2021-09-18 14:07] VITALS: BP 109/66
[2021-09-18] MEDS ORDERED: TPN PER PHARMACY IV NR ×9 (20:00)
== END 2021-09-18 17:20 | disposition home health service (06) | DRG 438 ==
LOC: ER 16:03 → OVERFLOW 08-19 05:26 → CENTRAL 08-19 10:35
PROVIDERS: ADMIT Registered Nurse; ATTEND Nurse Practitioner
PROC: 0DJD8ZZ Inspection of Lower Intestinal Tract, Via Natural or Artificial Opening Endoscopic (ICD-10-PCS; 2021-08-21)
PROC: 05HC33Z Insertion of Infusion Device into Left Basilic Vein, Percutaneous Approach (ICD-10-PCS; 2021-08-31)
PROC: B54NZZA Ultrasonography of Left Upper Extremity Veins, Guidance (ICD-10-PCS; 2021-08-31)
PROC: 0FB13ZX Excision of Right Lobe Liver, Percutaneous Approach, Diagnostic (ICD-10-PCS; principal; 2021-09-08)
PROC: 0DB98ZX Excision of Duodenum, Via Natural or Artificial Opening Endoscopic, Diagnostic (ICD-10-PCS; 2021-09-11)
PROC: 0DB98ZX Excision of Duodenum, Via Natural or Artificial Opening Endoscopic, Diagnostic (ICD-10-PCS; 2021-09-11)
PROC: 0DB68ZX Excision of Stomach, Via Natural or Artificial Opening Endoscopic, Diagnostic (ICD-10-PCS; 2021-09-11)
PROC: 02HV33Z Insertion of Infusion Device into Superior Vena Cava, Percutaneous Approach (ICD-10-PCS; 2021-09-17)
DX: K85.90 Acute pancreatitis without necrosis or infection, unspecified (principal); I26.99 Other pulmonary embolism without acute cor pulmonale; C78.7 Secondary malignant neoplasm of liver and intrahepatic bile duct; R16.0 Hepatomegaly, not elsewhere classified; K76.0 Fatty (change of) liver, not elsewhere classified; F10.10 Alcohol abuse, uncomplicated; K44.9 Diaphragmatic hernia without obstruction or gangrene; K59.00 Constipation, unspecified; E88.09 Other disorders of plasma-protein metabolism, not elsewhere classified; F41.9 Anxiety disorder, unspecified; K29.70 Gastritis, unspecified, without bleeding; K72.90 Hepatic failure, unspecified without coma; F32.A Depression, unspecified; Z20.822 Contact with and (suspected) exposure to COVID-19; C80.1 Malignant (primary) neoplasm, unspecified; Z87.891 Personal history of nicotine dependence; Z79.01 Long term (current) use of anticoagulants
CPT/HCPCS: 36415; 36569; 43239; 45378; 71045; 71275; 74176; 74183; 76700; 76942; 80048; 80053; 80307; 80320; 81001; 82105; 82140; 82378; 82962; 83690; 83735; 84100; 84154; 84478; 85025; 85379; 85610; 85730; 86301; 86704; 86706; 86708; 86803; 86850; 86900; 86901; 87340; 93005; 93971; 97163; G0378; J0690; J1100; J1815; J2001; J2250; J2405; J2704; J3480; J7131